=== PATIENT | female | born 1955 ===

== ENCOUNTER 2018-11-27 09:25 | Emergency (ER) | payer MEDICARE ==
[~2018-11-27] VITALS: Ht 157.5 cm; Wt 46.4 kg
[2018-11-27 09:36] VITALS: Ht 157.5 cm; Wt 46.4 kg
[2018-11-27] MEDS ORDERED: PROTONIX20 MG PO (09:39)
[2018-11-27] MEDS ORDERED: BAYER CHEWABLE81 MG PO (09:40)
[2018-11-27] MEDS ORDERED: MELATONIN5 MG PO (09:41)
[2018-11-27] MEDS ORDERED: ANTIBIOTIC (09:41)
[2018-11-27 10:12] LABS: BASOPHILS 0.3 % (0-2); EOSINOPHILS 2.3 % (0-7); HEMATOCRIT 43.2 % (36.0-48.0); HEMOGLOBIN 15.1 g/dL (12-16); IMMATURE GRANULOCYTES 0.1 % (0-5); LYMPHOCYTES 19.1 % (15-50); MCH 31.7 pg (26.0-34.0); MCV 90.6 fL (80.0-100.0); MEAN PLATELET VOLUME 9.5 fL (7.4-10.4); MONOCYTES 5.3 % (2-11); NEUTROPHILS 72.9 % (40-80); PLATELET COUNT 203 10x3/uL (130-400); RBC 4.77 10x6/uL (4.00-5.40); RDW 13.3 % (11.5-14.5)
[2018-11-27 10:28] LABS: AMYLASE - SERUM 69 U/L (25-115); LIPASE 142 U/L (73-393)
[2018-11-27 11:38] LABS: ALBUMIN 4.2 g/dL (3.4-5.0); ANION GAP 20.4 mmol/L (8-16); BILIRUBIN - TOTAL 0.7 mg/dL (0.2-1.3); CALCIUM 9.2 mg/dL (8.5-10.1); CARBON DIOXIDE 21.2 mmol/L (21.0-32.0); POTASSIUM - SERUM 3.6 mmol/L (3.5-5.1); PROTEIN - SERUM 7.7 g/dL (6.4-8.2)
[2018-11-27 12:28] LABS: APPEARANCE CLEAR (CLEAR); BILIRUBIN NEGATIVE (NEGATIVE); COLOR STRAW (YELLOW); GLUCOSE NEGATIVE (NEGATIVE); KETONE SMALL mg/dL (NEGATIVE); NITRITE NEGATIVE (NEGATIVE); PROTEIN NEGATIVE (NEGATIVE); SPECIFIC GRAVITY 1.005 (1.005-1.020); UROBILINOGEN NORMAL (NORMAL)
[2018-11-27 12:29] LABS: BACTERIA FEW /hpf (NONE SEEN); EPITHELIAL CELLS RARE /hpf (0-5); RED CELLS - URINE 0-5 /hpf (0-5); WHITE CELLS - URINE 0-5 /hpf (0-5)
[2018-11-27] MEDS ORDERED: VOLTAREN75 MG PO (12:35)
[2018-11-27 13:46] VITALS: BP 124/72
== END 2018-11-27 13:47 | disposition home or self-care (01) ==
LOC: D.ER 09:25
PROVIDERS: Emergency Medicine
DX: R10.9 Unspecified abdominal pain (principal); R31.9 Hematuria, unspecified; M54.5 Low back pain; F17.200 Nicotine dependence, unspecified, uncomplicated